=== PATIENT | female | born 1985 | race Caucasian/White ===

== ENCOUNTER 2017-04-30 10:55 | Emergency (ER) | payer BC ==
[~2017-04-30] VITALS: Ht 157.5 cm; Wt 61.3 kg
[2017-04-30 10:59] VITALS: Ht 157.5 cm; Wt 61.3 kg
--- NOTE | 2017-04-30 11:28 | EMERGENCY ROOM VISIT NOTE ---
History Report prepared by Mauriceibdaly: Alisha Davison Under the Supervision of: Dr. Adriana Marcum D.O. First contact with patient: 11:10 Chief Complaint: ED VAG BLEEDING Stated Complaint: MISCARRIAGE History of Present Illness The patient is a 31 year old female who presents to the Emergency Room with complaints of vaginal bleeding. She believes she was around 6 weeks , when last night, she started experiencing vaginal bleeding and cramping. She states "I saw a lot of blood and clots". The clots were about the size of a nickel and she states she passed "a couple" clots. She called her RESIDENT DOCTOR back in [place], where she currently lives, and he recommended she come to a local ED. This morning the bleeding has improved to "resembling a light period". Her LMP was March 22. She had taken a test within the past 6 weeks that was positive. This is her second and she has a 9 month old son at home. She denies any previous spotting or bleeding with this but notes she is Rh negative. She denies any family history of ectopic pregnancies. The patient admits to nausea but denies any vomiting, abdominal pain or urinary symptoms. She experienced minor chills but did not take her temperature. She denies any recent change in physical activity or recent sexual intercourse. She has not felt dizzy or lightheaded. She has a history of ulcerative colitis and has a J-pouch in place. Her colectomy was in April of 2010. She notes she does have a history of ovarian cysts. Source of History: patient Onset: last night Position: pelvis (vagina) Timing: other (improved) Associated Symptoms: + chills, + nausea, No fevers, No vomiting, No abdominal pain, No urinary symptoms Review of Systems See HPI for pertinent positives & negatives. A total of 10 systems reviewed and were otherwise negative. Past Medical & Surgical Medical Problems: (1) Ovarian cyst (2) Ulcerative colitis Surgical Problems: (1) History of colectomy Social History Smoking Status: Never Smoker Alcohol Use: occasionally Drug Use: none Marital Status: Housing Status: lives with family Occupation Status: employed Current/Historical Medications Scheduled Calcium (Calcium), 500 MG PO DAILY Cholecalciferol (Vitamin D3), 1,000 INTER.UNIT PO DAILY Mesalamine (Mesalamine Dr), 1.2 GM PO DAILY Probiotic Product (Probiotic), 1 CAP PO BID Ursodiol (Ursodiol), 500 MG PO BID Allergies Coded Allergies: Tinidazole (Unverified Allergy, Unknown, HIVES, 04/30/17) Physical Exam Vital Signs Date Time Temp Pulse Resp B/P (MAP) Pulse Ox O2 Delivery O2 Flow Rate FiO2 04/30/17 15:00 75 98/76 100 04/30/17 14:38 36.9 60 18 112/69 100 04/30/17 13:00 78 18 113/59 100 Room Air 04/30/17 13:00 78 18 113/59 100 Room Air 04/30/17 10:59 36.7 77 18 105/68 98 Room Air Physical Exam GENERAL: alert, well appearing, well nourished, no distress, non-toxic EYE EXAM: normal conjunctiva, PERRL and EOM's grossly intact OROPHARYNX: no exudate, no erythema, lips, buccal mucosa, and tongue normal and mucous membranes are moist NECK: supple, no nuchal rigidity, no adenopathy, non-tender LUNGS: Clear to auscultation. Normal chest wall mechanics HEART: no murmurs, S1 normal and S2 normal ABDOMEN: abdomen soft, non-tender, normo-active bowel sounds, no masses, no rebound or guarding. BACK: Back is symmetrical on inspection and there is no deformity, no midline tenderness, no CVA tenderness. SKIN: no rashes and no bruising UPPER EXTREMITIES: upper extremities are grossly normal. LOWER EXTREMITIES: No pitting edema. NEURO EXAM: Normal sensorium, cranial nerves II-XII grossly intact, normal speech, no gross weakness of arms, no gross weakness of legs. Medical Decision & Procedures ER Provider Diagnostic Interpretation: Radiology results have been interpreted by the radiologist and reviewed by me. <14 WKS SINGLE ULTRASOUND CLINICAL HISTORY: Vaginal bleed, poss miscarriage COMPARISON STUDY: None. FINDINGS: Transabdominal scanning of the pelvis was performed. There is a single intrauterine gestational sac, yolk sac, and pole demonstrating a crown-rump length of 2.19 cm consistent within 8 week and 6 day intrauterine gestation. heart rate was 172 bpm. Small subchorionic hematoma at the lower uterine segment which measures 2 x 1 cm. This is not resolved significant mass effect along the gestational sac and is considered to be within the range normal limits. IMPRESSION: 1. A single viable 8 week and 6 day intrauterine gestation with a heart rate of 172 bpm. 2. Small subchorionic hematoma which is considered to be within the range of normal limits given the gestational age. Electronically signed by: Jacek Crawley M.D. 04/30/2017 12:30 PM Laboratory Results 04/30/17 11:35 Red Blood Count 4.78, Mean Corpuscular Volume 87.0, Mean Corpuscular Hemoglobin 30.5, Mean Corpuscular Hemoglobin Concent 35.1, Mean Platelet Volume 10.7, Neutrophils (%) (Auto) 66.0, Lymphocytes (%) (Auto) 19.4, Monocytes (%) (Auto) 11.2, Eosinophils (%) (Auto) 2.6, Basophils (%) (Auto) 0.7, Neutrophils # (Auto ) 5.63, Lymphocytes # (Auto) 1.65, Monocytes # (Auto) 0.95, Eosinophils # (Auto ) 0.22, Basophils # (Auto) 0.06 04/30/17 11:35 Test 04/30/17 11:15 04/30/17 11:35 Urine Color YELLOW Urine Appearance CLEAR (CLEAR) Urine pH 7.0 (4.5-7.5) Urine Specific [place] 1.010 (1.000-1.030) Urine Protein NEG (NEG) Urine Glucose (UA) NEG (NEG) Urine Ketones NEG (NEG) Urine Occult Blood 2+ (NEG) Urine Nitrite NEG (NEG) Urine Bilirubin NEG (NEG) Urine Urobilinogen NEG (NEG) Urine Leukocyte Esterase NEG (NEG) Urine WBC (Auto) 1-5 /hpf (0-5) Urine RBC (Auto) 0-4 /hpf (0-4) Urine Hyaline Casts (Auto) 0 /lpf (0-5) Urine Epithelial Cells (Auto) 10-20 /lpf (0-5) Urine Bacteria (Auto) NEG (NEG) White Blood Count 8.52 K/uL (4.8-10.8) Red Blood Count 4.78 M/uL (4.2-5.4) Hemoglobin 14.6 g/dL (12.0-16.0) Hematocrit 41.6 % (37-47) Mean Corpuscular Volume 87.0 fL (80-100) Mean Corpuscular Hemoglobin 30.5 pg (25-34) Mean Corpuscular Hemoglobin Concent 35.1 g/dl (32-36) Platelet Count 368 K/uL (130-400) Mean Platelet Volume 10.7 fL (7.4-10.4) Neutrophils (%) (Auto) 66.0 % Lymphocytes (%) (Auto) 19.4 % Monocytes (%) (Auto) 11.2 % Eosinophils (%) (Auto) 2.6 % Basophils (%) (Auto) 0.7 % Neutrophils # (Auto) 5.63 K/uL (1.4-6.5) Lymphocytes # (Auto) 1.65 K/uL (1.2-3.4) Monocytes # (Auto) 0.95 K/uL (0.11-0.59) Eosinophils # (Auto) 0.22 K/uL (0-0.5) Basophils # (Auto) 0.06 K/uL (0-0.2) RDW Standard Deviation 43.3 fL (36.4-46.3) RDW Coefficient of Variation 13.5 % (11.5-14.5) Immature Granulocyte % (Auto) 0.1 % Immature Granulocyte # (Auto) 0.01 K/uL (0.00-0.02) Prothrombin Time 10.0 SECONDS (9.0-12.0) Prothromb Time International Ratio 1.0 (0.9-1.1) Anion Gap 7.0 mmol/L (3-11) Est Creatinine Clear Calc Drug Dose 122.1 ml/min Estimated GFR () 142.2 Estimated GFR (Non- 122.7 BUN/Creatinine Ratio 13.8 (10-20) Calcium Level 8.6 mg/dl (8.5-10.1) Human Chorionic Gonadotropin, Quant [id number] mIU/mL Laboratory results per my review. ED Course 1115: The patient was evaluated in room C5. A complete history and physical exam was performed. 1309: I reevaluated the patient. I updated her on her test results. 1340: I discussed the patients case with the on-call high school social studies teacher/GYN at [facility] in [place]. They are agreeable with our plan to follow up in the office when the patient returns to [place]. Pt will be given Rhogam here and copies of her testing today. 1425: I reevaluated the patient. She is resting comfortably and feeling well. I discussed her discharge instructions and she verbalized complete understanding and agreement. Medical Decision Differential diagnosis includes etiologies such as ectopic , dysfunction uterine bleeding, bleeding dyscrasia, trauma, infection, as well as others were entertained. Pt with 1st trimester bleeding initially suspicious for miscarriage, however found to have viable and subchorionic hematoma which likely was the cause of the bleeding. H/H stable, no orthostatic sx, pt well appearing, tolerating po, no recurrent heavy bleeding or cramping. Pt given copies of all results. Discussed precautions, pelvic rest, sx to watch/return for, she verbalized understanding and was agreeable with plan. Rhogam given in the ER prior to dc. Medication Reconcilliation Current Medication List: was personally reviewed by me Blood Pressure Screening Patient's blood pressure: Normal blood pressure Blood pressure disposition: Did not require urgent referral Consults Time Called: 1322 Consulting Physician: beverage inspection machine tender/GYN at [facility] in [place] Returned Call: 1340 I discussed the patients case with the on-call high school social studies teacher/GYN at [facility] in [place]. They are agreeable with our plan to follow up in the office when the patient returns to [place]. Impression Primary Impression: Vaginal bleeding Additional Impressions: Subchorionic hematoma in first trimester Scribe Attestation The scribe's documentation has been prepared under my direction and personally reviewed by me in its entirety. I confirm that the note above accurately reflects all work, treatment, procedures, and medical decision making performed by me. Departure Information Dispostion Home / Self-Care Referrals No Doctor, Assigned (PCP) Patient Instructions [facility] Additional Instructions Please follow up with your RESIDENT DOCTOR as soon as you return to [place]. Please take with the reports and labs. Please avoid heavy lifting or strenuous activity until you're seen and evaluated by RESIDENT DOCTOR. Please do not engage in sexual intercourse until you're seen and reevaluated by RESIDENT DOCTOR. Please begin taking a vitamin. Please make sure you're drinking plenty of water. You may use Tylenol as needed for pain. If you develop recurrent or worsening bleeding , worsening pain in your abdomen or back, develop dizziness, vomiting, fevers, or you've any other new concerns, please return the emergency room. Problem Qualifiers Additional Impressions: Weeks of gestation: 8 weeks Qualified Codes: Z3A.08 - 8 weeks gestation of Subchorionic hematoma in first trimester Fetus number: single or unspecified fetus Qualified Codes: O41.8X10 - Other specified disorders of amniotic fluid and membranes, first trimester, not applicable or unspecified; O46.8X1 - Other antepartum hemorrhage, first trimester
[2017-04-30] MEDS ORDERED: URSO1TAB10 PO (11:35)
[2017-04-30] MEDS ORDERED: MESA1.2T3 PO (11:35)
[2017-04-30] MEDS ORDERED: MISCCAP80 PO (11:35)
[2017-04-30] MEDS ORDERED: CHOL1000 PO (11:35)
[2017-04-30] MEDS ORDERED: CALC500T83 PO (11:35)
[2017-04-30 12:06] LABS: URINE APPEARANCE CLEAR (CLEAR); URINE BILIRUBIN NEG (NEG); URINE COLOR YELLOW; URINE NITRITE NEG (NEG); UROBILINOGEN NEG (NEG); ZZUR CULT IF INDIC CLEAN CATCH NO
[2017-04-30 12:07] LABS: MANUAL MICROSCOPIC REQUIRED? NO; REVIEW REQ? NO
[2017-04-30 12:09] LABS: BASO % 0.7 %; BASO ABS # 0.06 K/uL (0-0.2); BUN/CREATININE RATIO 13.8 (10-20); CALCIUM 8.6 mg/dl (8.5-10.1); COMPLETE YES; CREATININE 0.57 mg/dl (0.60-1.20); EOS % 2.6 %; HEMATOCRIT 41.6 % (37-47); IG% 0.1 %; LYMPH % 19.4 %; LYMPH ABS # 1.65 K/uL (1.2-3.4); MEAN CORPUSCULAR HEMOGLOBIN 30.5 pg (25-34); MEAN CORPUSCULAR HGB CONC 35.1 g/dl (32-36); MEAN PLATELET VOLUME 10.7 fL (7.4-10.4); MONO % 11.2 %; PLATELET COUNT 368 K/uL (130-400); POTASSIUM 3.5 mmol/L (3.5-5.1); RED BLOOD COUNT 4.78 M/uL (4.2-5.4); WHITE BLOOD COUNT 8.52 K/uL (4.8-10.8)
--- NOTE | 2017-04-30 12:32 | DIAGNOSTIC IMAGING REPORT ---
<14 WKS SINGLE ULTRASOUND CLINICAL HISTORY: Vaginal bleed, poss miscarriage COMPARISON STUDY: None. FINDINGS: Transabdominal scanning of the pelvis was performed. There is a single intrauterine gestational sac, yolk sac, and pole demonstrating a crown-rump length of 2.19 cm consistent within 8 week and 6 day intrauterine gestation. heart rate was 172 bpm. Small subchorionic hematoma at the lower uterine segment which measures 2 x 1 cm. This is not resolved significant mass effect along the gestational sac and is considered to be within the range normal limits. IMPRESSION: 1. A single viable 8 week and 6 day intrauterine gestation with a heart rate of 172 bpm. 2. Small subchorionic hematoma which is considered to be within the range of normal limits given the gestational age. Electronically signed by: Jacek Crawley M.D. 04/30/2017 12:30 PM Dictated Date/Time: 04/30/2017 12:27 PM
[2017-04-30 14:38] VITALS: BP 112/69; PULSE 60; TEMP 36.9; O2SAT 100
[2017-04-30 15:00] VITALS: BP 98/76; PULSE 75; O2SAT 100
== END 2017-04-30 15:00 | disposition home or self-care (01) ==
LOC: C.EDB 10:57 → C.EDC 15:00
DX: O46.91 Antepartum hemorrhage, unspecified, first trimester (principal); N83.209 Unspecified ovarian cyst, unspecified side; Z87.19 Personal history of other diseases of the digestive system; Z90.49 Acquired absence of other specified parts of digestive tract; Z79.899 Other long term (current) drug therapy; Z88.8 Allergy status to other drugs, medicaments and biological substances